=== PATIENT | female | born 1945 | race African-American/Black ===

== ENCOUNTER → 2018-10-29 13:22 | Outpatient (CLI) | payer OTHER ==
[~2018-10-29 13:22] MED LIST: ASPIRIN EC81 M1 PO; BENICAR HCT; CALCIUM 600 +1 EAC3 PO; PERCOCET 5-3251 TAB PO
[2018-11-06 13:13] VITALS: BMI 23.3
== END | disposition home or self-care (01) ==
LOC: D.RT 13:22
DX: C34.90 Malignant neoplasm of unspecified part of unspecified bronchus or lung (principal)

== ENCOUNTER 2018-11-04 09:33 | Outpatient (CLI) | payer MEDICARE ==
[~2018-11-04] VITALS: Ht 167.6 cm; Wt 56.4 kg
--- NOTE | ~2018-11-04 | HEMODYNAMI ---
PATIENT:RUIZ BUTCHER MEDICAL RECORD: [id number] : 49 LOCATION:DJordynCAT ADMISSION DATE: 11/04/18 Generatedon:11/04/201811:01 Patient name: RUIZ BUTCHER Patient #: [id number] SSN: : 1945 Date of study: 11/04/2018 Page: Of Hemodynamic Procedure Report Patient Data Patient Demographics Procedure consent was obtained First Name: RUIZ Gender: Female Last Name: GUADALUPE : 1945 [facility] Initial: OUSMANE Age: 72 year(s) Patient #: [id number] Race: Black Additional ID: [id number] Contact details Address: [address] [place] [address] State: [place] City: [place] Zip code: [address] Admission Admission Data Admission Date: 11/04/2018 Admission Time: 9:33 Lab Results Lab Result Date: 11/04/2018 Lab Result Time: 0:00 Biochemistry Name Units Result Min Max BUN mg/dl 14 --(--*-)-- 7 18 Creatinine mg/dl 1.1 --(--*-)-- 0.6 1.3 CBC Name Units Result Min Max Hemoglobin g/dl 14.4 --(*---)-- 13.5 17.5 Procedure Procedure Types Cath Procedure Diagnostic Procedure [facility] w/Coronaries Procedure Description Procedure Date Procedure Date: 11/04/2018 Procedure Start Time: 10:51 Procedure End Time: 10:59 Procedure Staff Name Function Mayank Rivas MD Performing Physician Cloe Strong RT Monitor Venkatesh Alegria RT Scrub Roland Belle RN Nurse Procedure Data Cath Procedure Fluoroscopy Diagnostic fluoroscopy Total fluoroscopy Time: 0.7 time: 0.7 min min Diagnostic fluoroscopy Total fluoroscopy dose: 122 dose: 122 mGy mGy Contrast Material Contrast Material Type Amount (ml) Isovue 300 45 Entry Location Entry Primary Successful Side Size Upsize Upsize Entry Closure Succes sful Closure Location (Fr) 1 (Fr) 2 (Fr) Remarks Device Remarks Femoral Right 5 Fr Exoseal artery Estimated blood loss: 5 ml Diagnostic catheters Device Type Used For End Catheter Placement MULTIPACK Pigtail 5 Fr LV Angiography catheter MULTIPACK JL 4.0 5Fr Left Coronary catheter Angiography MULTIPACK 3DRC 5Fr Right Coronary catheter Angiography Procedure Complications No complications Procedure Medications Medication Administration Route Dosage 0.9% NaCl I.V. 100 ml/hr Oxygen etCO2 Nasal cannula 2 l/min Heparin Flush Bag added to field 2 bags (1000units/500ml NS) Lidocaine 2% added to field 20 Versed I.V. 1 mg Fentanyl I.V. 50 mcg Versed I.V. 1 mg Fentanyl I.V. 50 mcg Hemodynamics Rest HGB: 14.4 (g/dl) Heart Rate: 56 (bpm) Pressure Samples Time Site Value (mmHg) Purpose Heart Use Rate(bpm) 10:53 LV 48/47,41 Snapshot 51 Snapshots Pre Cath Intra NCS Post Cath Vital Signs Time Heart Resp SPO2 etCO2 NIBP (mmHg) Rhythm Pain Sedation Rate (ipm) (%) (mmHg) Status Level (bpm) 10:34:15 55 20 96 0 151/68(134) NSR 0 (11) 10(A) , No pain 10:38:29 54 15 100 42.8 116/75(87) NSR 0 (11) 10(A) , No pain 10:42:33 53 18 100 0 111/69(81) NSR 0 (11) 10(A) , No pain 10:46:34 53 16 100 29.2 130/71(85) NSR 0 (11) 10(A) , No pain 10:50:46 52 14 100 0.7 100/60(70) NSR 0 (11) 10(A) , No pain 10:54:46 54 13 100 1.5 109/63(78) NSR 0 (11) 10(A) , No pain 10:58:50 52 10 100 0.7 114/60(84) NSR 0 (11) 10(A) , No pain Medications Time Medication Route Dose Verified Delivered Reason Notes Eff ectiveness by by 10:34:31 0.9% NaCl I.V. 100 Roland Roland Per ml/hr Barbra Belle physician RN RN 10:34:40 Oxygen etCO2 2 Roland Roland Per Nasal l/min Lorigan Lorigan physician cannula RN RN 10:34:52 Heparin Flush added 2 Roland Roland used for Bag to bags Lorigan Lorigan procedure (1000units/500ml field RN RN NS) 10:35:02 Lidocaine 2% added 20ml Roland Roland for local to vial Lorigan Lorigan anesthetic field RN RN 10:42:50 Versed I.V. 1 mg Roland Roland for Lorigan Lorigan sedation RN RN 10:42:58 Fentanyl I.V. 50 Roland Roland for mcg Lorigan Lorigan sedation RN RN 10:52:31 Versed I.V. 1 mg Roland Roland for Lorigan Lorigan sedation RN RN 10:52:37 Fentanyl I.V. 50 Roland Roland for mcg Lorigan Lorigan sedation RN wound care specialist Log Time Note 10:12:54 Diagnostic Cath Status : Elective 10:13:25 Venkatesh Alegria RT(R) sent for patient. Start room use. 10:13:31 Time tracking: Regular hours (M-F 7:00 - 5:00) 10:13:35 Plan of Care:Hemodynamics will remain stable., Cardiac rhythm will remain stable., Comfort level will be maintained., Respiratory function will remain adequate., Patient/ family verbilizes understanding of procedure., Procedure tolerated without complication., Recovers from procedure without complications.. 10:16:53 Lab Result : Hemoglobin 14.4 g/dl 10:16:53 Lab Result : Creatinine 1.1 mg/dl 10:16:53 Lab Result : BUN 14 mg/dl 10:22:14 Patient received from ED to CCL 2 Alert and oriented. Tansferred to table in Supine position. 10:22:15 Warm blankets applied, and johnathan hugger turned on for patient comfort. 10:22:15 Correct patient and procedure confirmed by team. 10:22:17 Signed procedure consent form obtained from patient. 10:29:11 ECG and BP/O2 sat monitors applied to patient. 10:29:11 Vital chart was started 10:29:12 Baseline sample Acquired. 10:29:14 Rhythm: sinus rhythm 10:29:16 Full Disclosure recording started 10:32:17 H&P Date Dictated: 11/04/2018 New H&P dictated by physician.. 10:32:19 Pre-procedure instructions explained to patient. 10:32:19 Pre-op teaching completed and patient verbalized understanding. 10:32:21 Family unavailable. 10:32:22 Patient NPO since Midnight. 10:32:24 Is the patient allergic to Iodine/contrast media? No. 10:32:24 Was the patient premedicated? No 10:32:26 Is patient on blood thinner?No 10:32:42 Patient diabetic? No. 10:32:44 Previous problem with sedation/anesthesia? No ? 10:32:46 Snore? No 10:32:47 Sleep apnea? No 10:32:48 Deviated septum? No 10:32:49 Opens mouth fully? Yes 10:32:50 Sticks out tongue? Yes 10:32:51 Airway obstruction? Yes copd, emphysema 10:32:55 Dentures? Yes in tight 10:32:58 Pre procedure: right dorsailis pedis pulse 2+ Normal; easily identifiable; not easily obliterated 10:32:59 Pre procedure: left dorsailis pedis pulse 2+ Normal; easily identifiable; not easily obliterated 10:33:02 Patient pain scale 0/10 ?. 10:33:09 IV patent on arrival in right wrist with 0.9% NaCl at [facility]. 10:33:11 Lab results completed and on chart. 10:33:17 Right groin area was prepped with chlora-prep and draped in sterile fashion 10:33:18 Alarms reviewed by R. N. 10:33:18 Sharps counted by scrub and verified by R.N. 10:34:31 0.9% NaCl 100 ml/hr I.V. was administered by Roland Belle RN; Per physician; 10:34:40 Oxygen 2 l/min etCO2 Nasal cannula was administered by Roland Belle RN; Per physician; 10:34:52 Heparin Flush Bag (1000units/500ml NS) 2 bags added to field was administered by Roland Belle RN; used for procedure; 10:35:02 Lidocaine 2% 20ml vial added to field was administered by Roland Belle RN; for local anesthetic; 10:42:25 Physician arrived 10:42:26 --------ALL STOP TIME OUT------ 10:42:26 Final Timeout: patient, procedure, and site verified with staff and physician. All members of the team are in agreement. 10:42:28 Right groin site verified by team. 10:42:31 Physical assessment completed. ASA score P 2 - A patient with mild systemic disease as per Mayank Rivas MD. 10:42:34 Sedation plan: IV Moderate Sedation Medication:Versed, Fentanyl 10:42:50 Versed 1 mg I.V. was administered by Roland Belle RN; for sedation; 10:42:55 Use device set Femoral Dx 10:42:56 ACIST Syringe (09918) opened to sterile field. 10:42:57 Bag Decanter (2002S) opened to sterile field. 10:42:57 Medline Cath Pack ([id number]) opened to sterile field. 10:42:58 Fentanyl 50 mcg I.V. was administered by Roland Belle RN; for sedation; 10:42:58 DIAGNOSTIC WIRE .035 260cm J wire (754668) opened to sterile field. 10:42:59 ACIST Hand Control (81776) opened to sterile field. 10:42:59 ACIST Manifold (78530) opened to sterile field. 10:43:00 DIAGNOSTIC Multipack 5Fr catheter set ([id number]) opened to sterile field. 10:43:01 Tegaderm 4 x 4 (1626W) opened to sterile field. 10:43:02 SHEATH 5FR [place] (HYK585) opened to sterile field. 10:43:23 Zero performed for pressure channel P1 10:43:33 Zero performed for pressure channel P1 10:51:39 Procedure started. 10:51:43 Local anesthetic to right femoral artery with Lidocaine 2% by Mayank Rivas MD.INITIAL ACCESS ONLY 10:52:00 A 5 Fr sheath was inserted into the Right Femoral artery 10:52:29 A MULTIPACK Pigtail 5 Fr catheter was advanced over the wire and used for LV Angiography. 10:52:31 Versed 1 mg I.V. was administered by Roland Belle RN; for sedation; 10:52:37 Fentanyl 50 mcg I.V. was administered by Roland Belle RN; for sedation; 10:53:56 LV hemodynamics recorded. 10:53:57 LV gram done using ERNST 10:54:04 Injector settings: Ml/sec: 5, Volume: 15, 10:54:10 EF : 55 % 10:54:15 Catheter removed. 10:54:19 A MULTIPACK JL 4.0 5Fr catheter was advanced over the wire and used for Left Coronary Angiography. 10:54:47 LCA angiography performed. 10:54:50 Injector settings: Ml/sec: 3, Volume: 6, 10:55:09 Catheter removed. 10:55:13 A MULTIPACK 3DRC 5Fr catheter was advanced over the wire and used for Right Coronary Angiography. 10:55:50 RCA angiography performed. 10:55:53 Injector settings: Ml/sec: 3, Volume: 6, 10:55:58 Catheter removed. 10:56:00 EXOSEAL 5Fr (EX500) opened to sterile field. 10:56:09 Sheath removed intact; hemostasis achieved with Exoseal to the Right Femoral artery. 10:56:10 Procedure ended.(Physican Out) 10:57:43 Fluoroscopy time 00.70 minutes. 10:57:47 Fluoroscopy dose: 122 mGy 10:57:47 Flurop Dose total: 122 10:57:51 Contrast amount:Isovue 300 45ml. 10:57:54 Sharps counted by scrub and verified by R.N. 10:59:00 Insertion/operative site no bleeding no hematoma. 10:59:18 Post right femoral artery:stable 10:59:20 Post Procedure Pulses reassessed and unchanged 10:59:25 Post procedure rhythm: unchanged. 10:59:27 Estimated blood loss: 5 ml 10:59:29 Post procedure instruction explained to patient.Patient verbalizes understanding. 10:59:29 Patient needs reinforcement of post procedure teaching. 10:59:39 Procedure and supply charges have been captured, reviewed, submitted and are correct. 10:59:43 Procedure Complication : No complications 10:59:45 Vital chart was stopped 10:59:46 See physician's report for complete and final results. 10:59:48 Report given to Pre/Post Procedure Room. 10:59:50 Patient transfered to Pre/Post Procedure Room with Stretcher. 10:59:53 Procedure ended. 10:59:53 Full Disclosure recording stopped 10:59:57 End room use (Document Last) Device Usage Item Name Manufacture Quantity Catalog Hospital Part Current Minimal L ot# / Number Charge Number Stock Stock Serial# Code ACIST Acist 1 44710 004594 632657 922562 20 [employer] (08366) [employer] Inc Bag Microtek 1 636698 80064 792457 5 Decanter Medical Inc. (2002S) Medline Medline 1 [id number] 174662 27907 517713 5 Cath Pack ([id number]) DIAGNOSTIC St Greg 1 149900 425053 810135 157414 30 WIRE .035 260cm J wire (588404) ACIST Hand Acist 1 65485 325929 188192 811042 5 Control Medical (28327) Systems Inc ACIST Acist 1 53243 623888 751384 321156 5 Manifold Medical (29003) Systems Inc DIAGNOSTIC Cardinal 1 [id number] 552306 98409 823509 30 Multipack Health 5Fr catheter set (CY8403) Tegaderm 4 3M 1 1626W 310517 665766 727762 5 x 4 (1626W) SHEATH 5FR Terumo 1 [id number] 331751 851852 829375 5 [place] (FGG188) MULTIPACK Cardinal 1 661747 5 Pigtail 5 Health Fr catheter MULTIPACK Cardinal 1 [id number] 5 JL 4.0 5Fr Health catheter MULTIPACK Cardinal 1 113488 5 3DRC 5Fr Health catheter EXOSEAL 5Fr Cardinal 1 EX500 996747 726350 943581 10 (EX500) Health Signature Audit [place] Stage Time Signature Unsigned Intra-Procedure 11/04/2018 Cleo Strong 11:01:21 AM RT(R) Signatures Monitor : Cleo Strong RT Signature : Date : Time : [id number] [place] [address]
[~2018-11-04 09:33] MED LIST changes: -ASPIRIN EC81 M1 PO; -PERCOCET 5-3251 TAB PO
[2018-11-04 09:38] VITALS: BP 146/83; Ht 167.6 cm; Wt 56.4 kg
--- NOTE | 2018-11-04 11:10 | NUR ---
VSS. RIGHT GROIN DRESSING C/D/I. NO S/S OF HEMATOMA NOTED. RIGHT PEDAL PULSE PALPABLE.
--- NOTE | 2018-11-04 11:40 | NUR ---
PT RESTING COMFORTABLY. RIGHT GROIN DRESSING C/D/I. NO S/S HEMATOMA NOTED. VSS. RIGHT PEDAL PULSE PRESENT.
--- NOTE | 2018-11-04 12:00 | NUR ---
RIGHT GROIN DRESSING C/D/I. NO S/S OF HEMATOMA. RIGHT PEDAL PULSE PALPABLE. HEAD OF BED INC TO 30 DEGREES. PT TOLERATED WELL. SET UP WITH DRING AND SANDWICH TRAY. PT'S AT BEDSIDE.
--- NOTE | 2018-11-04 12:30 | NUR ---
RIGHT GROIN DRESSING C/D/I. NO S/S OF HEMATOMA NOTED. RIGHT PEDAL PULSE PALPABLE.
--- NOTE | 2018-11-04 13:02 | NUR ---
RIGHT WRIST PIV D/C'D WITH CATH TIP INTACT. PT TOLERATED WELL. PT INSTRUCTED TO DRESS SELF. DISCUSSED DISCHARGE INSTRUCTIONS WITH PT AND PT'S FAMILY. THEY VOICED UNDERSTANDING. RIGHT GROIN DRESSING C/D/I. NO S/S OF HEMATOMA NOTED.
--- NOTE | 2018-11-04 13:10 | NUR ---
PT TAKEN OUT TO VEHICLE BY WHEELCHAIR. NO S/S OF DISTRESS NOTED. ALL BELONGINGS IN HAND.
--- NOTE | 2018-11-04 18:37 | OP ---
PATIENT NAME: RUIZ BUTCHER MEDICAL RECORD: [id number] :49 LOCATION:D.CAT ADMISSION DATE: SURGEON: BRODIE GORDON MD DATE OF OPERATION: 11/04/2018 PROCEDURES: 1. Left heart catheterization. 2. Selective coronary angiography. 3. Left ventriculogram. INDICATIONS: Angina, abnormal ECG, hypertension, preop evaluation. PROCEDURE IN DETAIL: After informed consent was obtained and after a detailed explanation of the risks, benefits as well as alternative therapies, the patient elected to proceed with angiogram and heart catheterization. The right radial area was prepped and draped in normal sterile fashion. Radial artery was cannulated via modified Seldinger technique with placement of 5-Tamazight sheath. All catheters exchanged through this sheath. FINDINGS: Left ventriculogram was performed in standard 30-degree ERNST view, reveals good cardiac wall motion throughout all segments. Overall ejection fraction estimated 60%. SELECTIVE CORONARY ANGIOGRAPHY: Left main, left anterior descending, left circumflex, right coronary artery are all smooth-walled vessels with no angiographic evidence of coronary artery disease. OVERALL IMPRESSION: 1. No angiographic evidence of coronary artery disease. 2. Normal left heart pressures. 3. Normal left ventricular systolic function. Her symptomatology is noncardiac in etiology. EKG is abnormal most likely secondary to hypertensive heart disease. No other cardiac workup or treatment is necessary. TRANSINT:[id number] Voice Confirmation ID: [id number] DOCUMENT ID: [id number] BRODIE GORDON MD at 1837 CC: [id number] DICTATION DATE: 11/04/18 1104 KARDEX CLERK: 11/04/18 1215 DEP CLI 11/04/[address] [address]
--- NOTE | 2018-11-04 18:37 | CN ---
PATIENT NAME:RUIZ BUTCHER MEDICAL RECORD: [id number] : 49 LOCATION:D.CAT ADMIT DATE: ACCOUNT: [id number] CONSULTING PHYSICIAN: BRODIE GORDON MD REFERRING PHYSICIAN: BRODIE GORDON MD DATE OF CONSULTATION: 11/04/2018 CARDIOLOGY CONSULTATION DIAGNOSES: 1. Chest pain compatible with angina. 2. Abnormal ECG. 3. Preoperative evaluation thoracic surgery. 4. Hypertension. HISTORY OF PRESENT ILLNESS: Mrs. Butcher is going for possible thoracic surgery tomorrow. She has been having episodes of chest pain, chest discomfort compatible with angina. Her EKG has T-wave inversions inferolaterally. She does not have a history of ischemic heart disease. PHYSICAL EXAMINATION: GENERAL APPEARANCE: Well-nourished, well-developed, appears stated age. Level of distress, comfortable. PSYCHIATRIC: Mental status, alert, normal affect. Orientation, oriented to time, place and person. EYES: Lids and conjunctiva, noninjected. No discharge, no pallor. ENT: Lips, teeth, gums, normal dentition. Oropharynx, no cyanosis, no pallor. NECK: Carotid arteries, bilateral normal upstroke, no bruits, no thrills. JUGULAR VEINS: No jugular venous pressure or distention. CERVICAL LYMPH NODES: Nontender, nonenlarged. THYROID: Not enlarged. Nontender. No nodules. LUNGS: Respiratory effort, unlabored. CHEST: Normal curvature. No thoracic deformity. No chest wall tenderness. Percussion, resonant. Auscultation, clear. No wheezes, no rales, no rhonchi. CARDIOVASCULAR: Precordial exam, nondisplaced. No heaves or pericardial thrills. Rate and rhythm, regular. Heart sounds, normal S1, normal S2. No S3, no gallop, no rub. Systolic murmur, not heard. Diastolic murmur, not heard. EXTREMITIES: No cyanosis, no edema. Peripheral pulses, full and equal in all extremities, except as noted. No bruits appreciated. ABDOMEN: Soft, nondistended. Normal aorta. No bruit. Nontender. No masses. Liver, nontender, no hepatomegaly. Spleen, nontender, no splenomegaly. MUSCULOSKELETAL: No joint tenderness. No joint swelling. No erythema. NEUROLOGICAL: Normal gait, normal strength, normal tone. SKIN: Warm and dry. REVIEW OF SYSTEMS: The patient reports easy bruising but reports no swollen glands. The patient reports no fever, no night sweats, no significant weight gain, no significant weight loss. No significant exercise tolerance. The patient reports no dry eyes, no irritation, no vision change. Patient reports no difficulty hearing and no ear pain. Patient reports no frequent nose bleeds or nose and sinus problems. Patient reports on arm pain on exertion. No shortness of breath while lying down. No history of heart murmur. Patient reports no cough, no wheezing or coughing up blood. Patient reports no abdominal pain, no vomiting. Normal appetite. No diarrhea and not vomiting blood. No nausea and no constipation. Patient reports no incontinence. No CONSULT REPORT [id number] RUIZ BUTCHER difficulty urinating. No hematuria. No increased frequency. Patient reports no muscle aches. No weakness, no arthralgias, no back pain. No swelling of the extremities. Patient reports no abnormal mole, no jaundice, no rashes. Reports no loss of consciousness. No weakness and no numbness. No seizures, dizziness, or headaches. The patient reports no depression, no sleep disturbance, feeling safe in a relationship and no alcohol abuse. Patient reports on fatigue. Reports no runny nose or sinus pressure. No itching, no hives, and no frequent sneezing. OVERALL IMPRESSION: Chest pain compatible with angina in an escalating fashion with abnormal ECG. She has a high likelihood of hemodynamically significant coronary artery disease. We will proceed with coronary angiography. Further care depends upon findings of the angiography. TRANSINT:[id number] Voice Confirmation ID: [id number] DOCUMENT ID: [id number] BRODIE GORDON MD at 1837 CC: [id number] DICTATION DATE: 11/04/18 1046 SHELLAC POLISHER: 11/04/18 1125 DEP CLI 11/04/18 [facility] [address] [place] [address]
== END 2018-11-04 13:10 | disposition home or self-care (01) ==
LOC: D.CATH 09:33 → D.ER 09:33 → EDSTATUS 10:38 → D.CATH 13:10
DX: R07.9 Chest pain, unspecified (principal); I10 Essential (primary) hypertension

== ENCOUNTER 2018-11-05 05:00 | Inpatient (IN) | payer MEDICARE ==
[2018-11-03 13:04] LABS: HEMOGLOBIN 14.4 g/dL (12-16); MCH 28.1 pg (26.0-34.0); MCHC 33.5 g/dL (31.0-37.0); MCV 83.8 fL (80.0-100.0); MEAN PLATELET VOLUME 9.4 fL (7.4-10.4); RBC 5.13 10x6/uL (4.00-5.40); RDW 15.5 % (11.5-14.5); WBC 7.2 10x3/uL (4.8-10.8)
[2018-11-03 13:15] LABS: APTT 33.7 SECONDS (22.8-39.4); INR 1.03 (0.85-1.17)
[2018-11-03 13:20] LABS: ANION GAP 10.8 mmol/L (8-16); BILIRUBIN - TOTAL 0.64 mg/dL (0.2-1.3); CALCIUM 9.8 mg/dL (8.5-10.1); CARBON DIOXIDE 32.7 mmol/L (21.0-32.0); CREATININE - SERUM 1.1 mg/dL (0.6-1.3); POTASSIUM - SERUM 3.5 mmol/L (3.5-5.1); PROTEIN - SERUM 8.1 g/dL (6.4-8.2)
[2018-11-03 14:18] LABS: APPEARANCE CLEAR (CLEAR); BILIRUBIN NEGATIVE (NEGATIVE); COLOR YELLOW (YELLOW); GLUCOSE NEGATIVE (NEGATIVE); KETONE NEGATIVE (NEGATIVE); NITRITE NEGATIVE (NEGATIVE); PROTEIN NEGATIVE (NEGATIVE); UROBILINOGEN NORMAL (NORMAL)
[~2018-11-05] VITALS: Ht 167.6 cm; Wt 66.4 kg
[2018-11-05] VITALS (34 sets, daily range): BP systolic 97–144; BP diastolic 47–89; BMI 20.2; BMI 20.8
--- NOTE | 2018-11-05 10:25 | NUR ---
PT ARRIVED IN THE UNIT FROM OR. PT HOOKED TO ICU MONITORS. PT GROOGY AND LETHARGIC. PT OPENS EYES TO VERBAL STIMULI. PT ON A SIMPLE MASK ON 10L. LEFT SUBCLAVIAN CVL DRESSING C/D/I. SEE IV FLOW SHEET FOR IV RATES. EPIDURAL NOTED MID BACK. DRESSING C/D/I. SEE EPIDURAL FLOW SHEET FOR DETAILS. LEFT LATERAL CHEST NOTED WITH 2 CT'[address]. BOTH C/D/I. BOTH CONNECTED TO SUCTION WITH BLOODY DRAINAGE NOTED. BOTH HAVE A SMALL AIR LEAK. DR CALDERON AWARE. RIGHT RADIAL JAVIER NOTED. WRIST PROTECTOR ON. CAP REFILL <3 SECONDS. FC NOTED. CLEAR, YELLOW URINE. FC TEMP 95. WILL CHECK ORALLY AND AXILLAY. R RADIAL IV NOTED. SL. PATENT. DRESSING C/D/I. VSS AT THIS TIME. WILL CONT POC.
--- NOTE | 2018-11-05 10:45 | NUR ---
ABG'S OBTAIN PER RT. O2 DECREASED TO 4L VIA NC. ORDERS TO REPLACE K WITH KCL 40MEQ OVER 3HOURS. WILL RECHECK.
--- NOTE | 2018-11-05 11:05 | NUR ---
ORAL TEMP AND AXILLARY TEMP 94.9 TO 54 DEGREES. BEAR HUGGER PLACED ON THE PT AND TURNED ON. THE PT IS AWAKE AND FOLLOWING COMMANDS BUT STILL GROOGY.
--- NOTE | 2018-11-05 12:39 | NUR ---
PT DOING WELL. VSS. PT MORE ALERT AND FOLLOWING COMMANDS BUT RESTING WITH HER EYES CLOSED. CALL LIGHT IN REACH. WILL CONT POC.
--- NOTE | 2018-11-05 13:55 | NUR ---
ATTEMPTED TO WORK WITH THE PT WITH USING HER IS. PT AROUSES TO VERBAL STIMULI AND FOLLOWS COMMANDS BUT QUICKLY CLOSES HER EYES AND FALLS BACK ASLEEP. PT UNABLE TO USE HER IS AT THIS TIME. WILL ATTEMPT AGAIN WHENEVER PT IS MORE ALERT.
--- NOTE | 2018-11-05 14:29 | NUR ---
PT AWAKE BUT STILL VERY GROOGY. PT ABLE TO USE HER IS. PULLED 500 ONCE AND THE REST OF THE TIMES WERE 250 OR LESS. INSTRUCTED THE PT TO COUGH AND DEEP BREATH 10X'S/H.
--- NOTE | 2018-11-05 16:06 | NUR ---
O2 REMOVED PER ABG RESULTS. VSS. WILL CONT TO MONITOR.
--- NOTE | 2018-11-05 21:00 | NUR ---
1900 REPORT RECEIVED CARE ASSUMED. PT LAYING IN BED RESTING. VSS. PT LAYING IN BED RESTING. IS 500. WEAK EFFORT COUGH AND DEEP BREATHING. ASSESSMENT DONE SEE FLOW SHEET. FAMILY AT BEDSIDE. WHEN ENTERING ROOM FAMILY ATTEMPTING TO MOVE PT. TEACHING PROVIDED QUESTIONS ANSWERED. 2100 MEDS GIVEN PER DEC. VSS. WILL CONTINUE TO MONITOR.
[2018-11-06] VITALS (85 sets, daily range): BP systolic 92–151; BP diastolic 45–68; Ht 167.6 cm; Wt 66.4 kg
--- NOTE | 2018-11-06 02:49 | NUR ---
INCREASE IN BP NOTED. TITRATING NITRO TO AFFECT. SEE FLOW SHEET. REASSESSMENT DONE SEE FLOW SHEET.
[2018-11-06 05:38] LABS: HEMATOCRIT 33.5 % (36.0-48.0); MCH 27.2 pg (26.0-34.0); MCHC 32.8 g/dL (31.0-37.0); MCV 82.9 fL (80.0-100.0); MEAN PLATELET VOLUME 9.2 fL (7.4-10.4); RBC 4.04 10x6/uL (4.00-5.40); RDW 15.5 % (11.5-14.5)
[2018-11-06 06:02] LABS: ALBUMIN 2.6 g/dL (3.4-5.0); ALKALINE PHOSPHATASE 43 U/L (46-116); ALT (SGPT) 25 U/L (10-68); BILIRUBIN - TOTAL 0.66 mg/dL (0.2-1.3); CALC OSMOLALITY 279 mosm/kg (275-300); CALCIUM 8.3 mg/dL (8.5-10.1); CARBON DIOXIDE 26.2 mmol/L (21.0-32.0); CHLORIDE - SERUM 104 mmol/L (98-107); CREATININE - SERUM 0.8 mg/dL (0.6-1.3); POTASSIUM - SERUM 3.3 mmol/L (3.5-5.1); PROTEIN - SERUM 5.8 g/dL (6.4-8.2); SODIUM 140 mmol/L (136-145); UREA NITROGEN 11 mg/dL (7-18); eGFR NON AFRICAN AMERICAN 75 mL/min (90-120)
[2018-11-06 06:07] LABS: GLUCOSE 141 mg/dL (74-106)
--- NOTE | 2018-11-06 07:00 | NUR ---
REPORT RECEIEVED FROM THE OFF GOING RN. SEE ASSESSMENT IN THE PTS FLOW SHEET. PT LYING IN BED. VSS. SEE IV FLOW SHEET FOR GTTS. LEFT LATERAL CT X2 TO SUCTION WITH NO AIR LEAKS. SEROUSANGIOUS DRAINAGE NOTED. DRESSING C/D/I. EPIDURAL DRESSING C/D/I. FC NOTED WITH CLEAR, YELLOW URINE. CALL LIGHT IN REACH. WILL CONT POC.
--- NOTE | 2018-11-06 13:20 | NUR ---
NITRO RESTARTED AND TITRATED PER ORDERES FOR HTN. SEE FLOW SHEET.
--- NOTE | 2018-11-06 15:27 | NUR ---
DR CONNER CHANGED EPIDURAL BAG.
--- NOTE | 2018-11-06 19:00 | NUR ---
REPORT RECEIVED CARE ASSUMED. PT LAYING IN BED RESTING. ASSESSMENT DONE SEE FLOW SHEET. VSS. DR TARUN FLOYD LOVENOX DOSE. NO SIGNS OF ACUTE DISTRESS NOTED WILL CONTINUE TO MONITOR.
--- NOTE | 2018-11-06 21:00 | NUR ---
MEDS GIVEN PER MAR. VSS. WILL CONTINUE TO MONITOR.
--- NOTE | 2018-11-06 23:18 | MORECARE ---
CASE MANAGEMENT DISCHARGE SUMMARY PATIENT: RUIZ BUTCHER OUSMANE UNIT: [id number] ADM DATE: 11/05/18 AGE: 72 : [birth year] SEX: F [facility] AUTHOR: LISA,DOC PHYSICIAN: REFERRING PHYSICIAN: KRISH CALDERON MD DATE OF SERVICE: 11/06/18 Discharge Plan Patient Name: RUIZ BUTCHER Facility: [facility]:[place] : 1945 Planned Disposition: Home Anticipated Discharge Date: Discharge Date: Expected LOS: Initial Reviewer: [id number] Initial Review Date: 11/06/2018 Generated: 11/07/18 12:18 am Comments DCP- Discharge Planning Updated by [email or web address]: Shirin Chatman on 11/06/18 10:[address] Patient Name: RUIZ BUTCHER Admission Status: Elective Accout number: [id number] Admission Date: 11-05-2018 : 1945 Admission Diagnosis: Attending: KRISH CALDERON Current LOS: 1 Anticipated DC Date: Planned Disposition: Home Primary Insurance: [employer] Discharge Planning Comments: CM met with patient and daughter Mikki at bedside after obtaining verbal consent. Patient states she plans on returning home after discharge. Patient states she lives alone and has 8-10 stairs to get into apartment. Patient denies any discharge needs at this time. Patient may require walk test if 02 is still needed upon discharge. CM will continue to follow and assist as needed for discharge planning / needs. Director Geophysical Laboratory: Shirin Chatman DCNavid - Discharge Planning Initial Assessment Updated by [email or web address]: Shirin Chatman on 11/06/18 11:15 pm * Is the patient Alert and Oriented? Yes * How many steps to enter\exit or inside your home? 8-10 * PCP Elizabeth Romero * Pharmacy [facility] * Preadmission Environment Home Alone * ADLs Independent * Equipment Cane * List name and contact numbers for known caregivers / representatives who currently or will assist patient after discharge: MIKKI DOUGLASS - DAUGHTER - [phone] * Verbal permission to speak to the caregivers and representatives has been obtained from the patient. Yes * Community resources currently utilized None * Additional services required to return to the preadmission environment? No * Can the patient safely return to the preadmission environment? Yes * Has this patient been hospitalized within the prior 30 days at any hospital? No Patient Name: RUIZ BUTCHER Page [id number] at 2318 All edits/amendments must be made on the electronic document DICTATION DATE: 11/06/182317 SPORTS DEVELOPMENT OFFICER: HOSEA 11/06/182317 RPT#: [id number] DC DATE: STATUS: ADM IN [facility] [address] [place] [address] END OF REPORT
[2018-11-07] VITALS (39 sets, daily range): BP systolic 70–155; BP diastolic 9–80
[2018-11-07 04:50] LABS: HEMATOCRIT 32.4 % (36.0-48.0); HEMOGLOBIN 10.7 g/dL (12-16); MCH 27.3 pg (26.0-34.0); MCV 82.7 fL (80.0-100.0); MEAN PLATELET VOLUME 9.4 fL (7.4-10.4); RBC 3.92 10x6/uL (4.00-5.40); RDW 15.3 % (11.5-14.5); WBC 13.9 10x3/uL (4.8-10.8)
[2018-11-07 05:06] LABS: ALBUMIN 2.2 g/dL (3.4-5.0); ALKALINE PHOSPHATASE 46 U/L (46-116); ALT (SGPT) 20 U/L (10-68); BILIRUBIN - TOTAL 0.57 mg/dL (0.2-1.3); CALCIUM 7.9 mg/dL (8.5-10.1); CARBON DIOXIDE 28.5 mmol/L (21.0-32.0); CHLORIDE - SERUM 101 mmol/L (98-107); CREATININE - SERUM 0.7 mg/dL (0.6-1.3); GLUCOSE 124 mg/dL (74-106); POTASSIUM - SERUM 3.2 mmol/L (3.5-5.1); PROTEIN - SERUM 5.6 g/dL (6.4-8.2); SODIUM 136 mmol/L (136-145); eGFR NON AFRICAN AMERICAN 88 mL/min (90-120)
[2018-11-07 05:11] LABS: CALC OSMOLALITY 270 mosm/kg (275-300); UREA NITROGEN 7 mg/dL (7-18)
--- NOTE | 2018-11-07 05:26 | NUR ---
2300 REASSESMENT COMPLETE. VSS. WILL CONTINUE TO MONITOR. 0100 WATER PROVIDED PER PT REQUEST. WILL CONITNUE TO MONITOR. 0300 REASSESMENT COMPLETE. VSS. COMPLETE BED BATH GIVEN. LINEN CHANGE PROVIDED. 0405 RADIOLOGY AT BEDSIDE. PT PRESSED EPIDURAL BOLUS. DECREASE IN BP NOTED. CLEVIPREX AND NITRO STOPPED. WHILE PT SITTING UP SYSTOLIC BP IN 70S. SLOW TO REBOUND. EXTREMITIES ELEVATED. NIBP COORELATED.
--- NOTE | 2018-11-07 10:55 | NUR ---
Nutrition Follow Up: Pt stated that she has no appetite at all and does not really want to eat. She said that she liked Boost and will try to drink if ordered. Daughter reported that pt is eating very minimal amounts. Family stated concern over pt's poor po intake and possibility of wt loss. Daughter requested that MD order Megace. RD encouraged pt to increase po intake as able and to make staff aware of any food preferences. Diet: Regular No BM since admit I<O Meds and labs reviewed Rec continue current diet. Will order Boost TID. Rec consider an appetite stimulant. RD following.
--- NOTE | 2018-11-07 13:49 | NUR ---
0745: UNCONTROLLED ATRIAL FIB NOTED ON MONITOR. 0800: DR. CALDERON HERE. ORDER REC'D TO CONSULT CARDIOLOGY. 0814: DR. GORDON NOTIFIED OF CONSULT AND ATRIAL FIB. NEW ORDERS REC'D.
--- NOTE | 2018-11-07 16:56 | NUR ---
DR. TIERNEY NOTIFIED OF CONSULT ORDERED 11/05/18.
--- NOTE | 2018-11-07 23:00 | NUR ---
1900 REPORT RECEIVED CARE ASSUMED. ASSESSMENT DONE SEE FLOW SHEET. VSS. PT VERBALIZES NO COMPLAINTS. 2100 MEDS GIVEN PER MAR. NO DIFFICULTY SWALLOWING NOTED. 2300 REASSESSMENT DONE SEE FLOW SHEET. VSS. WILL CONTINUE TO MONITOR.
[2018-11-08] VITALS (35 sets, daily range): BP systolic 108–188; BP diastolic 64–100
--- NOTE | 2018-11-08 01:00 | NUR ---
PT RESTING IN BED COMFORTABLEY NO SIGNS OF ACUTE DISTRESS NOTED WILL CONTINUE TO MONITOR.
--- NOTE | 2018-11-08 03:00 | NUR ---
REASSESSMENT COMPLETE VSS. PT REPORTS BURNING AT JAVIER SITE WHILE FLUSHING LINE. WILL CONTINUE TO MONITOR.
[2018-11-08 05:55] LABS: HEMATOCRIT 35.4 % (36.0-48.0); HEMOGLOBIN 11.6 g/dL (12-16); MCH 27.3 pg (26.0-34.0); MCHC 32.8 g/dL (31.0-37.0); MCV 83.3 fL (80.0-100.0); MEAN PLATELET VOLUME 9.6 fL (7.4-10.4); RBC 4.25 10x6/uL (4.00-5.40); RDW 15.3 % (11.5-14.5); WBC 10.7 10x3/uL (4.8-10.8)
[2018-11-08 06:29] LABS: ALBUMIN 2.2 g/dL (3.4-5.0); ALKALINE PHOSPHATASE 61 U/L (46-116); ALT (SGPT) 20 U/L (10-68); BILIRUBIN - TOTAL 0.53 mg/dL (0.2-1.3); CALC OSMOLALITY 278 mosm/kg (275-300); CALCIUM 8.7 mg/dL (8.5-10.1); CARBON DIOXIDE 28.6 mmol/L (21.0-32.0); CHLORIDE - SERUM 106 mmol/L (98-107); CREATININE - SERUM 0.8 mg/dL (0.6-1.3); GLUCOSE 86 mg/dL (74-106); POTASSIUM - SERUM 4.2 mmol/L (3.5-5.1); SODIUM 141 mmol/L (136-145); UREA NITROGEN 9 mg/dL (7-18); eGFR NON AFRICAN AMERICAN 75 mL/min (90-120)
--- NOTE | 2018-11-08 12:11 | OP ---
PATIENT NAME: RUIZ BUTCHER MEDICAL RECORD: [id number] :[birth year] [facility] ADMISSION DATE:11/05/18 SURGEON: ABDOUL ARBOLEDA MD DATE OF OPERATION: 11/05/2018 SURGEON: Abdoul Arboleda MD ANESTHESIA: General endotracheal, Dr. Quintero. OPERATION PERFORMED: 1. Left thoracotomy and left lower lobe resection. 2. Left radical mediastinal lymphadenectomy. 3. Flexible fiberoptic bronchoscopy. PREOPERATIVE DIAGNOSIS: Carcinoma, non-small cell, left lower lobe. POSTOPERATIVE DIAGNOSIS: Frozen section, adenocarcinoma, clear margins. INDICATION FOR OPERATION: Carcinoma of the left lower lobe. FINDINGS OF THE OPERATION: Carcinoma of the left lower lobes, free margins. Multiple lymph nodes were taken from level 6, level 5, level 4, level 10. There were 9 in level 8 and 9, level 7 was not identified. ESTIMATED BLOOD LOSS: Less than 100 mL. DESCRIPTION OF PROCEDURE: After informed consent, adequate preoperative medication, evaluation, the patient was brought to the operating room, placed on the table in the supine position. After induction of general endotracheal anesthesia and application of appropriate monitoring devices, the patient underwent flexible fiberoptic bronchoscopy and placement of a double-lumen tube. The patient was then turned in a right lateral decubitus position, protecting the neurological structures and pressure points. The left chest was then prepped and draped in a sterile field, utilizing Betadine scrub, alcohol, and Betadine solution. Betadine-impregnated drape was also used. A small posterolateral thoracotomy incision was made and dissection carried down the fascia. Hemostasis maintained with electrocautery. The fifth interspace was identified and opened. The fissures were examined. There were complete anteriorly and posteriorly. The hilum was dissected identifying the pulmonary artery to the lower lobe. Attention was then turned towards the inferior pulmonary ligament, which was dissected cephalad. There were no nodes at level 9 and 8 level. The inferior pulmonary vein was surrounded with a vessel loop. Dissection around the pulmonary artery was performed and the pulmonary artery trunk to the lower lobe was divided utilizing an Endo-MICHEAL vascular stapler. The left inferior pulmonary vein was also divided with a stapler. Attention was then turned toward the left lower lobe bronchus. This was dissected. Nodes were taken with the specimen or separately. The bronchial stump was closed with a TA 34.8. The lung was sent to pathology for diagnosis and margins, adenocarcinoma clear margins. Dissection was then performed and carried out from level 6 through level 5, level 4, no level 3 nodes, no level 7 nodes. Additional level 10 nodes were dissected and sent to pathology. The chest was irrigated with copious amounts of antibiotic solution and normal saline. There was no active bleeding. Two #28 chest tubes were placed, one anteriorly and superiorly, one posteriorly and inferiorly. Chest was again irrigated. Instrument count and sponge count were correct times 2. Chest was closed in OPERATIVE REPORT [id number] RUIZ BUTCHER layers utilizing #2 Vicryl pericostal sutures, #1 Vicryl on the latissimus dorsi, 2-0 Vicryl on the subcutaneous tissue, skin approximated with 3-0 subcuticular Vicryl. Sterile dressings were applied. The patient tolerated the procedure well, turned in a supine position, underwent flexible fiberoptic bronchoscopy. There were no endobronchial lesions. There was a good closure of the left lower lobe stump. The patient was then awakened and transferred to the CV ICU in satisfactory condition. TRANSINT:[id number] Voice Confirmation ID: [id number] DOCUMENT ID: [id number] ABDOUL ARBOLEDA MD at 1211 CC: [id number] DICTATION DATE: 11/05/18 1021 UMBRELLA FRAME MAKER: 11/05/18 1120 [place] [address]
--- NOTE | 2018-11-08 12:17 | NUR ---
1140: DR. CALDERON HERE. L CT X 2 DC'D. SITE DRESSED WITH 4X4S AND TEGADERM. 1145: R RADIAL ARTERIAL LINE DC'D. MANUAL PRESSURE HELD X 2 MIN. DRESSED WITH 2X2 AND TAPE.
--- NOTE | 2018-11-08 13:25 | NUR ---
EPIDURAL DC'D BY DR. EDGAR.
--- NOTE | 2018-11-08 13:40 | NUR ---
UP TO CHAIR WITH MINIMAL ASSISTANCE. TOLERATED WELL.
--- NOTE | 2018-11-08 21:00 | NUR ---
1900 REPORT RECEIVED CARE ASSUMED. PT SITTING UP IN CHAIR ON MONITOR. DEJAN NOTED. VERBALIZES NO COMPLAINTS. ASSESSMENT DONE SEE FLWO SHEET. VSS. 2100 MEDS GIVEN PER DEC. DEJAN NOTED. NO SIGNS OF ACUTE DISTRESS NTOED. WILL CONTINUE TO MONITOR.
[2018-11-09] VITALS (23 sets, daily range): BP systolic 120–173; BP diastolic 61–97
--- NOTE | 2018-11-09 03:00 | NUR ---
0100 PT OOB TO BATHROOM NO SIGNS OF ACUTE DISTRESS NOTED. WALKS WITH STEADY GAIT. SEVERAL TIMES THROUGH OUT NIGHT HR IN LOW 40S. HEMODYNAMICALLY STABLE. WILL CONTINUE TO MONITOR. 0300 REASSESSMENT DONE SEE FLOW SHEET. VSS. WILL CONTINUE TO MONITOR.
--- NOTE | 2018-11-09 05:30 | NUR ---
PT TAKEN FOR PA AND LAT WITH MINIMAL ASSISTANCE. ABLE TO FREE STAND. VSS. PT VERBALZIES NO COMPLAINTS.
[2018-11-09 05:43] LABS: HEMATOCRIT 35.2 % (36.0-48.0); HEMOGLOBIN 11.4 g/dL (12-16); MCH 26.9 pg (26.0-34.0); MCHC 32.4 g/dL (31.0-37.0); MEAN PLATELET VOLUME 9.5 fL (7.4-10.4); RBC 4.24 10x6/uL (4.00-5.40); RDW 15.2 % (11.5-14.5)
[2018-11-09 05:57] LABS: ALBUMIN 2.1 g/dL (3.4-5.0); ALKALINE PHOSPHATASE 75 U/L (46-116); BILIRUBIN - TOTAL 0.28 mg/dL (0.2-1.3); CALC OSMOLALITY 277 mosm/kg (275-300); CALCIUM 9.1 mg/dL (8.5-10.1); CARBON DIOXIDE 29.8 mmol/L (21.0-32.0); CHLORIDE - SERUM 105 mmol/L (98-107); CREATININE - SERUM 0.7 mg/dL (0.6-1.3); GLUCOSE 99 mg/dL (74-106); POTASSIUM - SERUM 4.4 mmol/L (3.5-5.1); PROTEIN - SERUM 5.8 g/dL (6.4-8.2); SODIUM 140 mmol/L (136-145); UREA NITROGEN 10 mg/dL (7-18); eGFR NON AFRICAN AMERICAN 88 mL/min (90-120)
[2018-11-09 06:02] LABS: ALT (SGPT) 30 U/L (10-68)
--- NOTE | 2018-11-09 09:00 | NUR ---
WALKED 500FT WITH PT. TOLERATED WELL.
--- NOTE | 2018-11-09 19:14 | NUR ---
SHIFT ASSESSMENT COMPLETED PER FLOW SHEET. AAOX4. PPP. LT SUBCLAVIAN CVL SALINE LOCKED. LT LATERAL CHEST INCISION SITE OPEN TO AIR, WELL APPROXIMATED, NO DRAINAGE. COUGH/DEEP BREATHING AND USE OF IS ENCOURAGED. COUGH NON-PRODUCTIVE. PULLING 1000 X10 ON IS. DENIES PAIN OR NEEDS. CALL LIGHT WITHIN REACH. SEE FLOW SHEET FOR COMPLETE ASSESSMENT. WILL CONTINUE TO MONITOR.
--- NOTE | 2018-11-09 20:04 | NUR ---
CALL LIGHT ANSWERED. FAMILY AT BEDSIDE. ASSISSTED OOB PER HER REQUEST TO USE BATHROOM. GAIT STEADY, ABLE TO AMBULATE INDEPENDENTLY. REPORTS VOIDED X1. ASSISSTED BACK IN BED. DENIES FURTHER NEEDS. CALL LIGHT WITHIN REACH.
--- NOTE | 2018-11-09 21:19 | NUR ---
FAMILY AT BEDSIDE. SCHEDULED MEDS GIVEN, WATER WITH ICE PROVIDED, NO DYSPHAGIA NOTED. DENIES NEEDS. CALL LIGHT WITHIN REACH. WILL CONTINUE TO MONITOR.
--- NOTE | 2018-11-09 22:26 | NUR ---
CALL LIGHT ANSWERED, ASSISSTED OUT OF BED TO BATHROOM PER HER REQUEST. GAIT STEADY. REPORTS VOID X1. ASSISSTED BACK IN BED. COMPLAINING OF INCISIONAL PAIN ONCE SHE GOT IN BED, REQUESTING PAIN MEDICATION, PRN PERCOCET GIVEN. DENIES FURTHER NEEDS. WILL CONTINUE TO MONITOR.
--- NOTE | 2018-11-09 23:11 | NUR ---
REASSESSMENT COMPLETED PER FLOW SHEET, SEE FOR DETAILS. VSS. WILL CONTINUE TO MONITOR.
[2018-11-10] VITALS (11 sets, daily range): BP systolic 114–147; BP diastolic 61–90
--- NOTE | 2018-11-10 01:07 | NUR ---
RESTING, NO ACUTE DISTRESS NOTED. WILL CONTINUE TO MONITOR.
--- NOTE | 2018-11-10 03:11 | NUR ---
REASSESSMENT COMPLETED PER PARAG SHEET, SEE FOR DETAILS. NO ACUTE DISTRESS NOTED. DENIES NEEDS. WILL CONTINUE TO MONITOR.
--- NOTE | 2018-11-10 03:40 | NUR ---
CALL LIGHT ANSWERED, ASSISSTED OOB TO BATHROOM PER PATIENT'S REQUEST. VOIDED X1. ASSISSTED BACK IN BED. WATER WITH ICE PROVIDED. DENIES FURTHER NEEDS. CALL LIGHT WITHIN REACH. WILL CONTINUE TO MONITOR.
--- NOTE | 2018-11-10 05:08 | NUR ---
ASSISSTED TO CHAIR, REQUESTING A WASH CLOTH TO "GET CLEANED UP". BASIN WITH SOAP, WATER, AND WASHCLOTHS PROVIDED. [facility] G[facility] PROIVIDED. MINIMAL ASSISSTANCE PROVIDED WITH BATH. CLEAN SHEETS PROVIDED. DENIES FURTHER NEEDS. WILL CONTINUE TO MONITOR. CALL LIGHT WITHIN REACH.
[2018-11-10 06:37] LABS: HEMATOCRIT 36.3 % (36.0-48.0); MCH 27.2 pg (26.0-34.0); MCHC 33.1 g/dL (31.0-37.0); MCV 82.3 fL (80.0-100.0); MEAN PLATELET VOLUME 9.3 fL (7.4-10.4); RBC 4.41 10x6/uL (4.00-5.40); RDW 15.2 % (11.5-14.5); WBC 6.6 10x3/uL (4.8-10.8)
--- NOTE | 2018-11-10 07:00 | NUR ---
ASSESSMENT COMPLETE VOICES NO CO AT TIME. SITTING UP IN CHAIR.
[2018-11-10 07:15] LABS: ALBUMIN 2.4 g/dL (3.4-5.0); ALKALINE PHOSPHATASE 70 U/L (46-116); ALT (SGPT) 27 U/L (10-68); CALC OSMOLALITY 280 mosm/kg (275-300); CARBON DIOXIDE 27.5 mmol/L (21.0-32.0); CHLORIDE - SERUM 105 mmol/L (98-107); CREATININE - SERUM 0.7 mg/dL (0.6-1.3); GLUCOSE 101 mg/dL (74-106); POTASSIUM - SERUM 4.3 mmol/L (3.5-5.1); PROTEIN - SERUM 6.4 g/dL (6.4-8.2); SODIUM 141 mmol/L (136-145); UREA NITROGEN 12 mg/dL (7-18); eGFR NON AFRICAN AMERICAN 88 mL/min (90-120)
[2018-11-10] MEDS ORDERED: ASPIRIN EC81 M1 PO (10:53)
[2018-11-10] MEDS ORDERED: PERCOCET 5-3251 TAB PO (10:59)
--- NOTE | 2018-11-10 15:00 | NUR ---
DC TO HOME NO QUESTIONS ABOUT DC. ALL APPT GIVEN. ALL MEDS EXPLAINED.
--- NOTE | 2018-11-10 17:19 | MORECARE ---
CASE MANAGEMENT DISCHARGE SUMMARY PATIENT: RUIZ BUTCHER UNIT: [id number] ADM DATE: 11/05/18 AGE: 72 : [birth year] SEX: F [facility] AUTHOR: LISA,DOC PHYSICIAN: REFERRING PHYSICIAN: KRISH CALDERON MD DATE OF SERVICE: 11/10/18 Discharge Plan Patient Name: RUIZ BUTCHER Facility: [facility]:[place] : 1945 Planned Disposition: Home Anticipated Discharge Date: Discharge Date: 11/10/2018 Expected LOS: Initial Reviewer: [email or web address] Initial Review Date: 11/06/2018 Generated: 11/10/18 6:19 pm Comments DCP- Discharge Planning Updated by [email or web address]: Shirin Chatman on 11/10/18 4:[address] Patient Name: RUIZ BUTCHER Encounter No: [id number] : 1945 Primary Insurance: [place] [employer] Anticipated DC Date: Planned Disposition: Home External Planned Provider: : IMM explained and served 11/10/18 @ 1230 DCP follow-up note: Patient and family in agreement with discharge plan. No changes to plan. Case management will follow and assist as needed. Shirin Chatman DCP- Discharge Planning Updated by [email or web address]: Shirin Chatman on 11/06/18 10:[address] Patient Name: RUIZ BUTCHER Admission Status: Elective Accout number: [id number] Admission Date: 11-05-2018 : 1945 Admission Diagnosis: Attending: KRISH CALDERON Current LOS: 1 Anticipated DC Date: Planned Disposition: Home Primary Insurance: [employer] Discharge Planning Comments: CM met with patient and daughter Mikki at bedside after obtaining verbal consent. Patient states she plans on returning home after discharge. Patient states she lives alone and has 8-10 stairs to get into apartment. Patient denies any discharge needs at this time. Patient may require walk test if 02 is still needed upon discharge. CM will continue to follow and assist as needed for discharge planning / needs. Obstetrics Gyn Physician: Shirin Chatman DCPIA - Discharge Planning Initial Assessment Updated by [email or web address]: Shirin Chatman on 11/06/18 11:15 pm * Is the patient Alert and Oriented? Yes * How many steps to enter\exit or inside your home? 8-10 * PCP Elizabeth Romero * Pharmacy [facility] * Preadmission Environment Home Alone * ADLs Independent * Equipment Cane * List name and contact numbers for known caregivers / representatives who currently or will assist patient after discharge: MIKKI DOUGLASS - VI - [phone] * Verbal permission to speak to the caregivers and representatives has been obtained from the patient. Yes * Community resources currently utilized None * Additional services required to return to the preadmission environment? No * Can the patient safely return to the preadmission environment? Yes * Has this patient been hospitalized within the prior 30 days at any hospital? No Coverage Notice Reviewer: [id number] Mitchell Chatman Notice Issued Date-Time: 11/10/2018 12:30 Notice Type: IM Discharge Notice Notice Delivered To: Patient Relationship to Patient: Self Clearance Diver Name: Delivery Method: HAND - Hand Delivered Radha Days: Prior Verbal Notification: Recipient Understood Notice: Yes Recipient Signature: Yes Med Rec Note Co-signed by Attending: Coverage Notice Comment: Last DP export: 11/06/18 10:18 p Patient Name: RUIZ BUTCHER Page [id number] at 1719 All edits/amendments must be made on the electronic document DICTATION DATE: 11/10/181717 FOOD MANAGEMENT AIDE: HOSEA 11/10/181717 RPT#: [id number] DC DATE:11/10/18 STATUS: DIS IN [facility] [address] [place] [address] END OF REPORT
== END 2018-11-10 15:52 | disposition home or self-care (01) | DRG 165 ==
LOC: D.SDCHOLD 05:00 → D.CVICU 05:00 → D.SDCHOLD 07:30 → D.CVICU 09:34
PROVIDERS: ADMIT Internal Medicine Cardiovascular Disease
PROC: 0BJ08ZZ Inspection of Tracheobronchial Tree, Via Natural or Artificial Opening Endoscopic (ICD-10-PCS; 2018-11-05)
PROC: 0BTJ0ZZ Resection of Left Lower Lung Lobe, Open Approach (ICD-10-PCS; principal; 2018-11-05 07:30)
PROC: 07T70ZZ Resection of Thorax Lymphatic, Open Approach (ICD-10-PCS; 2018-11-05 07:30)
DX: C34.32 Malignant neoplasm of lower lobe, left bronchus or lung (principal); E87.6 Hypokalemia; I48.0 Paroxysmal atrial fibrillation

== ENCOUNTER → 2018-11-27 14:05 | Outpatient (CLI) | payer MEDICARE ==
[2018-11-06 13:13] VITALS: BMI 23.3
[~2018-11-27 14:05] MED LIST changes: +ASPIRIN EC81 M1 PO; +PERCOCET 5-3251 TAB PO
== END | disposition home or self-care (01) ==
LOC: D.RAD 08:00
DX: C34.90 Malignant neoplasm of unspecified part of unspecified bronchus or lung (principal)

== ENCOUNTER → 2019-05-04 13:42 | Outpatient (CLI) | payer MEDICARE ==
[2018-11-06 13:13] VITALS: BMI 23.3
== END | disposition home or self-care (01) ==
LOC: D.RAD 13:42
PROVIDERS: ATTEND Internal Medicine Cardiovascular Disease
DX: C34.90 Malignant neoplasm of unspecified part of unspecified bronchus or lung (principal)